=== PATIENT | female | born 1980 | race Caucasian/White ===

== ENCOUNTER 2016-08-06 20:46 | Inpatient (IN) | payer MEDICARE, OTHER ==
--- NOTE | ~2016-08-06 | DS ---
Unit #: [id number] #: [id number] Patient: OLE ALVAREZ [id number] [facility] [address] [place] [address] [id number] MR#: [id number] NAME: OLE ALVAREZ ROOM: [facility] Age: 36 Sex: F Admission Date: 08/06/2016 : 1980 Discharge Date: 08/19/2016 Attending Physician: Sam Avilez M.D. Primary Care Physician: Primary Care Physician No DISCHARGE SUMMARY REASON FOR ADMISSION Depression and paranoia. DIAGNOSTIC STUDIES LABORATORY RESULTS: Unremarkable. HOSPITAL COURSE The patient was admitted to inpatient unit on 08/06/2016 and discharged on 08/19/2016. The patient was treated on the inpatient unit with group therapy, individual therapy, and medication management. The patient responded well with the above modalities of treatment and subsequently, the patient was discharged with a plan to follow up in outpatient clinic such as transition program. DISCHARGE MEDICATIONS Effexor XR 150 mg daily for depression, Cymbalta 60 mg daily for depression, Vistaril 50 mg t.i.d. for anxiety, Ativan 1 mg t.i.d. for anxiety, trazodone 50 mg at bedtime for sleep, and Abilify 10 mg b.i.d. for mood and psychotic symptoms. DISCHARGE DIAGNOSES Psychiatric: 1. Schizoaffective disorder, bipolar type, F25.9. 2. Anxiety disorder, not otherwise specified. Secondary diagnosis: Deferred. Medical diagnosis: Obesity. Stressors: Psychosocial stressors. DISCHARGE INSTRUCTIONS The patient is to follow up in outpatient clinic as per social insurance analyst. CONDITION ON DISCHARGE The patient was pleasant and cooperative. Denied any psychotic symptom or any suicidal ideation. PROGNOSIS Guarded. DIET AND ACTIVITY As tolerated. Unit #: [id number] #: [id number] Patient: OLE ALVAREZ Dictated by... Prabha Burk/lorena TD: 08/19/2016 21:01 JOB #: [id number] DISCHARGE SUMMARY X Sam Avilez MD X DISCHARGE SUMMARY
--- NOTE | ~2016-08-06 | PN ---
Unit #: [id number] #: [id number] Patient: OLE ALVAREZ [id number] [facility] [address] [place] [address] [id number] I MR#: [id number] NAME: OLE ALVAREZ ROOM: [facility] Age: 36 Sex: F Admission Date: 08/06/2016 : 1980 Attending Physician: Sam Avilez M.D. Admitting Physician: Sam Avilez M.D. Primary Care Physician: Primary Care Physician Teresita BAPTISTE PROGRESS NOTES DATE OF SERVICE: 08/10/2016 DISCUSSION The patient interviewed, chart reviewed, obtained information from nursing staff. The patient was compliant and cooperative. Mood is sad, dysphoric, flat affect, guarded, isolative. The patient needed seclusion and holding because of aggressive behavior and needed a p.r.n. REVIEW OF SYSTEMS Complete review of systems is unremarkable. MENTAL STATUS EXAMINATION General appearance; the patient dressed casually. Attention span and concentration, poor. Oriented in place and person. Mood and affect were labile. Speech; slow, concrete. Thought process, circumstantial. Association; guarded, paranoid, isolative, mood lability, bizarre behavior. Recent and remote memory, poor. Insight and judgment, poor. DIAGNOSIS Schizoaffective disorder, bipolar type. ASSESSMENT AND PLAN Advised to continue with current medication and therapeutic protocol. We will monitor response to medication and make further adjustment of medication if needed. Dictated by... Prabha Burk/lorena TD: 08/13/2016 06:12 JOB #: [id number] Unit #: [id number] #: [id number] Patient: OLE ALVAREZ PROGRESS NOTES X Sam Avilez MD PROGRESS NOTE
--- NOTE | ~2016-08-06 | PN ---
Unit #: [id number] #: [id number] Patient: TRUDI KELLER [id number] [facility] [address] [place] [address] [id number] I MR#: [id number] NAME: TRUDI KELLER ROOM: [facility] Age: 36 Sex: F Admission Date: 08/06/2016 : 1980 Attending Physician: Sam Avilez M.D. Admitting Physician: Sam Avilez M.D. Primary Care Physician: Primary Care Physician Teresita BAPTISTE PROGRESS NOTES DATE 08/12/2016 DISCUSSION Ms. Trudi Keller is a 36-year-old female seen on 08/12/2016. The patient interviewed, chart reviewed. Obtained information from nursing staff. The patient's mood continues to be labile, guarded, paranoid. The patient doing better since started on Ativan. According to the staff report yesterday was impulsive. Started hitting windows. Still having problems with mood lability, guarded, paranoid. Complete review of systems unremarkable. MENTAL STATUS EXAMINATION General appearance, the patient dressed casually. Attention span and concentration fair. Oriented to place and person. Mood and affect was labile, guarded, paranoid. Thought process circumstantial. The patient still having above mentioned episode. Recent and remote memory poor. Insight and judgement poor. DIAGNOSES Schizoaffective disorder bipolar type. ASSESSMENT/PLAN Advise to continue with current medication and therapeutic protocol. We will monitor response to medication and make further adjustment of medication. Dictated by... Prabha Burk/nguyen TD: 08/14/2016 20:37 JOB #: [id number] Unit #: [id number] #: [id number] Patient: TRUDI KELLER PROGRESS NOTES X Sam Avilez MD PROGRESS NOTE
--- NOTE | ~2016-08-06 | PN ---
Unit #: [id number] #: [id number] Patient: TRUID KELLER [id number] [facility] [address] [place] [address] [id number] I MR#: [id number] NAME: TRUDI KELLER ROOM: [facility] Age: 36 Sex: F Admission Date: 08/06/2016 : 1980 Attending Physician: Sam Avilez M.D. Admitting Physician: Sam Avilez M.D. Primary Care Physician: Primary Care Physician Teresita HOYT NOTES DATE OF SERVICE: 08/11/2016 DISCUSSION Ms. Trudi Keller is a 36-year-old female, seen on 08/11/2016. The patient had a lot of problem with anger, aggression, mood lability, and severe anxiety. Subsequently, Ativan was added, 1 mg t.i.d. and the patient was given 1 mg as a now dose. The patient continues to be isolative, guarded, still having problem with the anxiety and mood lability. REVIEW OF SYSTEMS Complete review of systems unremarkable. MENTAL STATUS EXAMINATION General appearance, the patient dressed casually. Attention span and concentration, fair. Oriented in place and person. Mood and affect, labile. Speech, monotone. Thought process; concrete, isolative, guarded, flat affect, bizarre behavior. Recent and remote memory, poor. Insight and judgment, poor. ASSESSMENT Bipolar mood disorder, not otherwise specified. Schizoaffective disorder, bipolar type. PLAN Advised to continue with current medication and therapeutic protocol. We will monitor response to medication and make further adjustment of medication. Also, ordered medical consult. The patient's UA was abnormal. Dictated by... Prabha Bukr/lorena TD: 08/13/2016 05:23 JOB #: [id number] Unit #: [id number] #: [id number] Patient: TRUDI KELLER EVELINA NOTES X Sam Avilez MD PROGRESS NOTE
--- NOTE | ~2016-08-06 | PN ---
Unit #: [id number] #: [id number] Patient: TRUDI KELLER [id number] [facility] [address] [place] [address] [id number] I MR#: [id number] NAME: TRUDI KELLER ROOM: [facility] Age: 36 Sex: F Admission Date: 08/06/2016 : 1980 Attending Physician: Sam Avilez M.D. Admitting Physician: Sam Avilez M.D. Primary Care Physician: Primary Care Physician Teresita BAPTISTE PROGRESS NOTES DATE OF SERVICE 08/08/2016 DISCUSSION Mr. Trudi Keller is a 36-year-old female seen on 08/08/2016. The patient interviewed, chart reviewed. Obtained information from nursing staff. The patient continues to be isolative, flat affect, guarded, paranoid. Mood lability. Anxiety. The patient sad, depressed, anxious, but reported medication is helping her. Still tearful, anxious. Complete Review of Systems: Unremarkable. MENTAL STATUS EXAMINATION General Appearance: The patient dressed casually. Attention span, concentration: Poor. Oriented in place and person. Mood and affect labile. Speech: Rapid. Thought process: Circumstantial. The patient is still having passive suicidal ideation, guarded, paranoid, mood lability. Recent and remote memory: Poor. Insight and judgment: Poor. DIAGNOSIS Schizoaffective disorder, bipolar type. ASSESSMENT/PLAN Advised to continue with current medication and therapeutic protocol. We will monitor response to medication and make further adjustment of medication. Dictated by... Prabha Burk/lesly TD: 08/10/2016 14:47 JOB #: [id number] Unit #: [id number] #: [id number] Patient: TRUDI KELLER [place] PROGRESS NOTES X aSm Avilez MD PROGRESS NOTE
--- NOTE | ~2016-08-06 | PN ---
Unit #: [id number] #: [id number] Patient: TRUDI ALVAREZ [id number] [facility] [address] [place] [address] [id number] I MR#: [id number] NAME: TRUDI ALVAREZ ROOM: [facility] Age: 36 Sex: F Admission Date: 08/06/2016 : 1980 Attending Physician: Sam Avilez M.D. Admitting Physician: Sam Avilez M.D. Primary Care Physician: Primary Care Physician Teresita [facility] PROGRESS NOTES DATE OF SERVICE 08/13/2016 DISCUSSION Trudi Alvarez is a 36-year-old female seen on 08/13/2016. The patient interviewed, chart reviewed. Obtained information from nursing staff. The patient was compliant, cooperative. Mood sad, dysphoric, flat affect. The patient was able to participate in programming. The patient reported that making progress. Vital Signs: 98.4, 92, 106/65. The patient did not show any aggressive behavior, but yesterday bizarre behavior, impulsive behavior. The patient reports making progress. The patient was able to tolerate medication fairly well. Complete Review of Systems: Unremarkable. MENTAL STATUS EXAMINATION General Appearance: The patient moderately obese. Dressed casually. Attention span, concentration: Fair. Oriented in place and person. Mood and affect: Sad, dysphoric. Speech: Slow, monotone. Thought process: [place]. Association: The patient denied any thoughts of harming self or others but guarded, paranoid, isolative. Recent and remote memory: Poor. Insight and judgment: Poor. DIAGNOSIS Schizoaffective disorder bipolar type. ASSESSMENT/PLAN Advised to continue with current medication and therapeutic protocol. We will monitor response to medication and make further adjustment of medication. Dictated by... Prabha Burk/lesly TD: 08/15/2016 07:16 JOB #: [id number] Unit #: [id number] #: [id number] Patient: TRUDI ALVAREZ PROGRESS NOTES X Sam Avilez MD PROGRESS NOTE
--- NOTE | ~2016-08-06 | HP ---
Unit #: [id number] #: [id number] Patient: TRUDI ALVAREZ [id number] [place] [address] [id number] I MR#: [id number] NAME: TURDI ALVAREZ ROOM: [facility] Age: 36 Sex: F Admission Date: 08/06/2016 : 1980 Attending Physician: Sam Avilez M.D. Admitting Physician: Sam Avilez M.D. Primary Care Physician: Primary Care Physician No HISTORY AND PHYSICAL HISTORY OF PRESENT ILLNESS Trudi is a 36 year old admitted to [address] [place] [address] with depression and verbalizing wanting to hurt herself. PAST MEDICAL HISTORY Obesity. PAST SURGICAL HISTORY Nothing reported. ALLERGIES No known drug allergies. SOCIAL HISTORY She denies cigarettes, alcohol and illicit drug use. FAMILY HISTORY Medically noncontributory. REVIEW OF SYSTEMS CONSTITUTIONAL: No fever or chills. HEENT: Denies any sore throat, ear pain or runny nose. CARDIOVASCULAR: Denies chest pain, irregular heart rhythm or palpitations. CHEST: Denies shortness of breath or cough. No hemoptysis. GASTROINTESTINAL: Denies nausea, vomiting, diarrhea or chronic constipation. ENDOCRINE: Denies history of increased thirst or urination. No recent significant weight loss or gain. GENITOURINARY: Denies dysuria, frequency, or hematuria. SKIN: Denies any rashes. HEMATOLOGIC: Denies history of increased bleeding or bruising. MUSCULOSKELETAL: Denies any hot, swollen joints. No generalized muscle pain. NEUROLOGIC: Denies problems with vision or speech. No frequent, severe headaches. No numbness, tingling or weakness in any extremities. Denies loss of bladder or bowel control. CURRENT MEDICATIONS 1. Trazodone 75 mg q.h.s. 2. Abilify 10 mg q.h.s. 3. Lorazepam 1 mg t.i.d. 4. Cymbalta 60 mg daily 5. Effexor XR 150 mg daily Unit #: [id number] #: [id number] Patient: TRUDI ALVAREZ 6. Milk of Magnesia p.r.n. 7. Maalox p.r.n. 8. Tylenol p.r.n. 9. Melatonin 5 mg q.h.s. PHYSICAL EXAMINATION GENERAL: Alert, obese, in no apparent distress. VITAL SIGNS: Blood pressure 142/98, heart rate 90, respirations 16, temperature 98.6. WEIGHT: 199 pounds. HEIGHT: 5'2". SKIN: Warm and dry without rash or lesion. HEENT: Normocephalic. TMs not viewed. Oral and nasal passages clear. Conjunctivae clear. Pupils equal, round and reactive to light and accommodation. Extraocular movements intact. NECK: Supple without lymphadenopathy or thyromegaly. HEART: Regular rate and rhythm without murmur. LUNGS: Clear. ABDOMEN: Soft, nontender. : Not done. EXTREMITIES: No evidence of cyanosis, clubbing or edema. Moves all extremities without focal deficit. NEUROLOGICAL: Grossly within normal limits. Cranial Nerves: II: Visual werner are intact. III, IV AND : Extraocular movements are intact. Pupils are equal, round and reactive to light. V: Facial sensation is grossly normal. VII: Facial movements and expression are normal. VIII: Auditory acuity grossly intact. IX, X: Uvula is midline. Phonation is normal. XI: Patient shrugs shoulders and turns head normally. XII: Tongue protrudes in the midline. Sensory and Motor Function: Sensory and motor sensation is grossly normal. Motor: moves all extremities well. Coordination: Gait is normal. Deep Tendon Reflexes: Intact. IMPRESSION Psychiatric admission RECOMMENDATIONS PSYCHIATRIC: Per psychiatrist. MEDICAL: I see no contraindications to participating in facility's activities. MEDICAL PROGNOSIS Good. MEDICAL CONDITION Stable. Dictated by... Abbi Hall P.A.-C. for Prabha Begum/nguyen Unit #: [id number] #: [id number] Patient: TRUDI ALVAREZ TD: 08/07/2016 19:49 JOB #: [id number] HISTORY AND PHYSICAL X Abbi Hall HISTORY AND PHYSICAL
--- NOTE | ~2016-08-06 | PN ---
Unit #: [id number] #: [id number] Patient: TRUDI KELLER [id number] [facility] [address] [place] [address] [id number] I MR#: [id number] NAME: TRUDI KELLER ROOM: [facility] Age: 36 Sex: F Admission Date: 08/06/2016 : 1980 Attending Physician: Sam Avilez M.D. Admitting Physician: Sam Avilez M.D. Primary Care Physician: Primary Care Physician Teresita BAPTISTE PROGRESS NOTES DATE 08/16/2016 DISCUSSION Trudi Keller is a 36-year-old female seen on 08/16/2016. The patient tolerated medication fairly well. Compliant and cooperative. Mood sad, dysphoric, flat. The patient denied any complaint. No aggression. Complete review of systems unremarkable. MENTAL STATUS EXAMINATION General appearance, the patient dressed casually. Attention span and concentration was fair. Oriented to place and person. Mood and affect sad, dysphoric, flat, withdrawn. Answered questions in a monotone voice. Speech monotone. Thought process concrete. The patient denied any thoughts of harming self or others but guarded paranoid. Recent and remote memory poor. Insight and judgement poor. DIAGNOSES Schizoaffective disorder bipolar type. ASSESSMENT/PLAN Advise to continue with current medication and therapeutic protocol. We will monitor response to medication and make further adjustment of medication if needed. Dictated by... Prabha Burk/nguyen TD: 08/20/2016 01:42 JOB #: [id number] Unit #: [id number] #: [id number] Patient: TRUDI KELLER PROGRESS NOTES X Sam Avilez MD PROGRESS NOTE
--- NOTE | ~2016-08-06 | PN ---
Unit #: [id number] #: [id number] Patient: TRUDI ALVAREZ [id number] [facility] [address] [place] [address] [id number] I MR#: [id number] NAME: TRUDI ALVAREZ ROOM: [facility] Age: 36 Sex: F Admission Date: 08/06/2016 : 1980 Attending Physician: Sam Avilez M.D. Admitting Physician: Sam Avilez M.D. Primary Care Physician: Primary Care Physician No [facility] PROGRESS NOTES DATE OF SERVICE 08/15/2016 DISCUSSION Ms. Trudi Alvarez is a 36-year-old female seen on 08/15/2016. The patient interviewed, chart reviewed. Obtained information from nursing staff. The patient was compliant, cooperative. Mood sad, dysphoric, flat affect, but no aggressive behavior. The patient reports making progress. The patient's Abilify was increased to 10 mg twice daily, and the patient seemed more calmer, cooperative. The patient understands if she is able to maintain safe behavior. Plan to consider discharge on Friday. The patient denied any suicidal ideation, feeling better. Complete Review of Systems: Unremarkable. MENTAL STATUS EXAMINATION General Appearance: The patient dressed casually. Able to smile. Made good eye contact. Attention span, concentration: Fair. Oriented in place and person. Mood and affect: Sad, dysphoric, flat affect, but able to smile. Speech: Monotone. Thought process: [place]. Association: The patient denied any thoughts of harming self or others but somewhat guarded, isolative. Recent and remote memory: Poor. Insight and judgment: Poor. DIAGNOSIS Schizoaffective disorder, bipolar type. ASSESSMENT/PLAN Advised to continue with current medication and therapeutic protocol. We will monitor response to medication and make further adjustment of medication. Dictated by... Prabha Burk/lesly TD: 08/17/2016 08:29 JOB #: [id number] Unit #: [id number] #: [id number] Patient: TRUDI ALVAREZ PROGRESS NOTES X Sam Avilez MD PROGRESS NOTE
--- NOTE | ~2016-08-06 | PN ---
Unit #: [id number] #: [id number] Patient: TRUDI KELLER [id number] [facility] [address] [place] [address] [id number] I MR#: [id number] NAME: TRUDI KELLER ROOM: [facility] Age: 36 Sex: F Admission Date: 08/06/2016 : 1980 Attending Physician: Sam Avilez M.D. Admitting Physician: Sam Avilez M.D. Primary Care Physician: Primary Care Physician Teresita HOYT NOTES DATE 08/14/2016 DISCUSSION Trudi Keller is a 36-year-old female seen on 08/14/2016. The patient interviewed, chart reviewed. Obtained information from nursing staff. The patient was compliant and cooperative. Mood sad, dysphoric. Flat affect, guarded. The patient was somewhat tearful but able to maintain safe behavior. There is an agreed order for the treatment. According to staff the patient was guarded, isolative withdrawn. No side effects from medication. Complete review of systems unremarkable. MENTAL STATUS EXAMINATION General appearance, the patient dressed casually. Attention span and concentration fair. Oriented to place and person. Mood and affect was sad, dysphoric withdrawn. Speech monotone. Thought process concrete. The patient denied any thoughts of harming self or others but guarded. Recent and remote memory poor. Insight and judgement poor. DIAGNOSES Schizoaffective disorder bipolar type. ASSESSMENT/PLAN Advise to continue with trazodone, lorazepam, Vistaril, Abilify, Cymbalta combination with a plan to increase dosage to 10 mg twice daily. If needed consider further adjustment of medication. Dictated by... Prabha Burk/nguyen TD: 08/15/2016 23:04 JOB #: [id number] Unit #: [id number] #: [id number] Patient: TRUDI KELLER EVELINA NOTES X Sam Avilez MD PROGRESS NOTE
--- NOTE | ~2016-08-06 | PN ---
Unit #: [id number] #: [id number] Patient: TRUDI ALVAREZ [id number] [facility] [address] [place] [address] [id number] I MR#: [id number] NAME: TRUDI ALVAREZ ROOM: [facility] Age: 36 Sex: F Admission Date: 08/06/2016 : 1980 Attending Physician: Sam Avilez M.D. Admitting Physician: Sam Avilez M.D. Primary Care Physician: Primary Care Physician Teresita BAPTISTE PROGRESS NOTES DATE 08/17/2016 DISCUSSION Ms. Trudi Meng is a 36-year-old female, seen on 08/17/2016. The patient interviewed, chart reviewed, and obtained information from the nursing staff. The patient was compliant and cooperative. Affect brighter. Mood good. The patient is able to maintain safe behavior. REVIEW OF SYSTEMS Complete review of systems unremarkable. MENTAL STATUS EXAMINATION General appearance: Patient casually dressed. Attention span and concentration, fair. Oriented to time, place, and person. Mood and affect, brighter. Speech, regular rate, more spontaneous. Thought process, coherent. Association, the patient denied any thoughts of harming self or others but guarded, decrease in paranoia. Recent and remote memory, poor. Insight and judgment, poor. DIAGNOSIS Schizoaffective disorder, bipolar type. ASSESSMENT/PLAN Advised to continue with the current medication and therapeutic protocol and will monitor response to medication, and make further adjustment of medication if needed. Dictated by... Prabha Burk/allen TD: 08/20/2016 08:01 JOB #: [id number] Unit #: [id number] #: [id number] Patient: TRUDI ALVAREZ PROGRESS NOTES X Sam Avilez MD PROGRESS NOTE
--- NOTE | ~2016-08-06 | CO ---
Unit #: [id number] #: [id number] Patient: OLE ALVAREZ [id number] [place] [address] [id number] I MR#: [id number] NAME: OLE ALVAREZ ROOM: [facility] Age: 36 Sex: F Admission Date: 08/06/2016 : 1980 Attending Physician: Sam Avilez M.D. Consultation Date: 08/07/2016 CONSULTATION REPORT MAZIN Brush is a 36-year-old admitted with depression and verbalizing wanting to hurt herself. At the time of admission, she gave no history of high blood pressure. Pressures have been controlled since admission; 118/76, 110/66, 130/78 with heart rates running 87, 82, 92. PLAN Continue to monitor blood pressures. The patient can follow up with primary care physician should she have any concerns about her blood pressure. Dictated by... Abbi Hall P.A.-C. for Prabha Begum/lorena TD: 08/10/2016 14:02 JOB #: [id number] CONSULTATION REPORT X Abbi Hall CONSULTATION REPORT
--- NOTE | ~2016-08-06 | PN ---
Unit #: [id number] #: [id number] Patient: TRUDI KELLER [id number] [facility] [address] [place] [address] [id number] I MR#: [id number] NAME: RTUDI KELLER ROOM: [facility] Age: 36 Sex: F Admission Date: 08/06/2016 : 1980 Attending Physician: Sam Avilez M.D. Admitting Physician: Sam Avilze M.D. Primary Care Physician: Primary Care Physician Teresita HOYT NOTES DATE 08/09/2016 DISCUSSION Trudi Keller is a 36-year-old female seen on 08/09/2016. Patient interviewed, chart reviewed, obtained information from nursing staff. Patient's mood labile, sad, dysphoric, anxious, nervous, guarded. Patient tolerating medication fairly well. Patient still having problems with anxiety, mood lability, paranoia, guarded. Vital signs stable 98.0, 87, 16, 131/87. Patient's thoughts circumstantial, paranoid, recent thoughts oppositional, guarded. Complete review of systems unremarkable. MENTAL STATUS EXAMINATION General appearance: Patient dressed casually. Attention span and concentration fair. Oriented in place and person. Mood and affect sad/dysphoric. Speech monotone. Thought processes concrete. Patient denied any thoughts of harming self or others or any psychotic symptoms. Recent and remote memory poor. Insight and judgment poor. DIAGNOSIS Schizoaffective disorder, bipolar type ASSESSMENT/PLAN Advised to continue with the current medication and therapy protocol. We will monitor response to medication and make further adjustment of medication. Dictated by... Prabha Burk/jose cruz TD: 08/11/2016 10:43 JOB #: [id number] Unit #: [id number] #: [id number] Patient: TRUDI KELLER PROGRESS NOTES X Sam Avilez MD PROGRESS NOTE
--- NOTE | ~2016-08-06 | PN ---
Unit #: [id number] #: [id number] Patient: TRUDI KELLER [id number] [facility] [address] [place] [address] [id number] I MR#: [id number] NAME: TRUDI KELLER ROOM: [facility] Age: 36 Sex: F Admission Date: 08/06/2016 : 1980 Attending Physician: Sam Avilez M.D. Admitting Physician: Sam Avilez M.D. Primary Care Physician: Primary Care Physician Teresita BAPTISTE PROGRESS NOTES DATE OF SERVICE: 08/18/2016 DISCUSSION Trudi Keller is a 36-year-old female, seen on 08/18/2016. The patient interviewed, chart reviewed, and obtained information from nursing staff. The patient was compliant and cooperative. Mood was sad, dysphoric, flat affect, but reports making progress. The patient overall is showing much improvement. No side effects from medication. Complete review of systems unremarkable. MENTAL STATUS EXAMINATION General appearance; the patient is moderately obese, dressed casually. Attention span and concentration, fair. Oriented in time, place, and person. Mood and affect were brighter, able to smile. Speech, regular rate. Thought process, goal directed. The patient denied any thoughts of harming self or others, but still somewhat guarded. Recent and remote memory, poor. Insight and judgment, poor. DIAGNOSIS Schizoaffective disorder, bipolar type. ASSESSMENT AND PLAN Advised to continue with current medication and therapeutic protocol. If the patient continues to do well, consider discharge next week in the followup in outpatient program. Dictated by... Prabha Burk/lorena TD: 08/19/2016 19:31 JOB #: [id number] Unit #: [id number] #: [id number] Patient: TRUDI KELLER PROGRESS NOTES X Sam Avilez MD PROGRESS NOTE
--- NOTE | ~2016-08-06 | PN ---
Unit #: [id number] #: [id number] Patient: TRUDI KELLER [id number] [facility] [address] [place] [address] [id number] MR#: [id number] NAME: TRUDI KELLER ROOM: [facility] Age: 36 Sex: F Admission Date: 08/06/2016 : 1980 Attending Physician: Sam Avilez M.D. Admitting Physician: Sam Avilez M.D. Primary Care Physician: Primary Care Physician Teresita BAPTISTE PROGRESS NOTES DATE 08/07/2016 DISCUSSION Ms. Trudi Keller is a 36-year-old female seen on 08/07/2016. The patient was tearful, anxious, nervous, sad, depressed, withdrawn, tearful, poor insight, poor judgement. Complete review of systems unremarkable. MENTAL STATUS EXAMINATION General appearance, the patient dressed casually. Attention span and concentration fair. Oriented to place and person. Mood and affect labile. Speech rapid. Thought process circumstantial guarded, paranoid, agitated, hostile, aggressive. Recent and remote memory poor. Insight and judgement poor. DIAGNOSES 1. Schizoaffective disorder bipolar type. 2. Mood disorder NOS. ASSESSMENT/PLAN Recommending at this time the patient was given Haldol 10, Cogentin 1 and Ativan 1 mg injection a.m. which was affective. Continue with current medication. If needed consider further adjustment of medication and if needed consider long acting injectable medication. Dictated by... Prabha Burk/nguyen TD: 08/08/2016 23:58 JOB #: [id number] Unit #: [id number] #: [id number] Patient: TRUDI KELLER PROGRESS NOTES X Sam Avilez MD X PROGRESS NOTE
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
[2016-08-07 09:48] LABS: THYROID STIMULATING HORMONE 3.08 uIU/ml (0.34-5.60)
[2016-08-07 09:58] LABS: FREE THYROXIN (T4) 0.77 ng/dL (0.58-1.64)
[2016-08-11 13:04] LABS: URINE APPEARANCE TURBID; URINE BILIRUBIN NEG (NEG); URINE BLOOD TRACE (NEG); URINE COLOR YELLOW; URINE GLUCOSE NEG (NEG); URINE KETONE NEG (NEG); URINE LEUKOCYTE ESTERASE 1+ (NEG); URINE NITRATE NEG (NEG); URINE PROTEIN NEG (NEG); URINE SPECIFIC GRAVITY 1.027 (1.003-1.035); URINE UROBILINOGEN 0.2 MG/DL (NEG)
[2016-08-11 13:08] LABS: URINE BACTERIA AUWI 4+ (NEGATIVE); URINE SQUAMOUS EPITHELIAL CELL MANY /[HPF]; UWBCS1 AUWI 50-100 (0-5)
[2016-08-11 13:09] LABS: U HYALINE CASTS AUWI 0-2 /[LPF]
== END 2016-08-19 12:00 | disposition home or self-care (01) | DRG 885 ==
LOC: P2L 20:46
PROVIDERS: Psychiatry & Neurology Psychiatry
DX: F33.2 Major depressive disorder, recurrent severe without psychotic features (principal); F25.9 Schizoaffective disorder, unspecified; I10 Essential (primary) hypertension; N39.0 Urinary tract infection, site not specified; F41.9 Anxiety disorder, unspecified; E66.9 Obesity, unspecified; F39 Unspecified mood [affective] disorder
CPT/HCPCS: 36415; 80048; 80076; 80307; 81003; 84439; 84443; 84703; 85025; 96361; 96374; 99285; G0480; J0515; J1630; J2060

== ENCOUNTER 2016-08-27 13:47 | Inpatient (IN) | payer MEDICARE, OTHER ==
--- NOTE | ~2016-08-27 | PN ---
Unit #: [id number] #: [id number] Patient: TRUDI KELLER [id number] [facility] [address] [place] [address] [id number] I MR#: [id number] NAME: TRUDI KELLER ROOM: [facility] Age: 36 Sex: F Admission Date: 08/27/2016 : 1980 Attending Physician: Sam Avilez M.D. Admitting Physician: Sam Avilez M.D. Primary Care Physician: Primary Care Physician Teresita HOYT NOTES DATE OF SERVICE: 09/01/2016 DISCUSSION Trudi Keller is a 36-year-old female, seen on 09/01/2016. The patient interviewed, chart reviewed, and obtained information from nursing staff. The patient was compliant and cooperative. Vital signs; temperature 97.8, pulse 91, and blood pressure 112/66. The patient was isolative, guarded, flat affect, sad, dysphoric, but still having periods of time when she just wants to leave. The patient understands that she will be leaving next week as soon as find placement. Complete review of systems unremarkable. MENTAL STATUS EXAMINATION General appearance, the patient dressed casually. Attention span and concentration, poor. Oriented in place and person. Mood and affect; sad, depressed, poor eye contact. Speech; slow, long pauses. Thought process; concrete, guarded, paranoid, but denied any thoughts of harming self or others. Recent and remote memory, poor. Insight and judgment, poor. DIAGNOSIS Schizoaffective disorder, bipolar type. ASSESSMENT AND PLAN Advised to continue with current medication and therapeutic protocol. We will monitor response to medication and make further adjustment of medication. Dictated by... Prabha Burk/lorena TD: 09/02/2016 13:39 JOB #: [id number] Unit #: [id number] #: [id number] Patient: TRUDI KELLER PROGRESS NOTES Page 1 of 1 X Sam Avilez MD PROGRESS NOTE
--- NOTE | ~2016-08-27 | CO ---
Unit #: [id number] #: [id number] Patient: TRUDI ALVAREZ [id number] [place] [address] [id number] MR#: [id number] NAME: TRUDI ALVAREZ ROOM: [facility] Age: 36 Sex: F Admission Date: 08/27/2016 : 1980 Attending Physician: Sam Avilez M.D. Primary Care Physician: Primary Care Physician No Consultation Date: 08/28/2016 CONSULTATION REPORT SUBJECTIVE Trudi is a 36-year-old who complained of "upper respiratory infection symptoms." She describes a cough productive of clear sputum. She has had no increased temperatures or complaints of shortness of breath. She has also had a bit of clear nasal drainage. We have been asked to assess and treat. Nursing staff reports no increased temperatures. OBJECTIVE GENERAL: Alert, well nourished, in no apparent distress. VITAL SIGNS: Blood pressure 150/80, heart rate 80, respirations 16, temperature 98.6, weight 198, and height 5 feet 2 inches. HEENT: Normocephalic. TMs shiny bilaterally. Oral and nasal passages clear. Conjunctivae clear. NECK: Supple without lymphadenopathy. CHEST: Lungs clear. ASSESSMENT Upper respiratory infection, most likely viral. PLAN Claritin 10 mg one p.o. daily. Dictated by... Abbi Hall PEleonoraAEleonora-Ibrahima. for Prabha Begum/lorena TD: 08/30/2016 02:46 JOB #: [id number] CONSULTATION REPORT X Abbi Hall X CONSULTATION REPORT
--- NOTE | ~2016-08-27 | PN ---
Unit #: [id number] #: [id number] Patient: TRUDI KELLER [id number] [facility] [address] [place] [address] [id number] I MR#: [id number] NAME: TRUDI KELLER ROOM: [facility] Age: 36 Sex: F Admission Date: 08/27/2016 : 1980 Attending Physician: Sam Avilez M.D. Admitting Physician: Sam Avilez M.D. Primary Care Physician: Primary Care Physician Teresita BAPTISTE PROGRESS NOTES DATE 08/29/2016 DISCUSSION Ms. Trudi Keller is a 36-year-old female seen on 08/29/2016. Patient continues to look sad, depressed, withdrawn. Patient reported feeling sad, depressed, anxious. Patient withdrawn, isolative, guarded, flat affect. Complete review of system unremarkable. MENTAL STATUS EXAMINATION General appearance, patient dressed casually. Attention span, concentration fair. Oriented in place and person. Mood and affect sad, depressed. Speech monotone. Thought process, concrete. Patient reported having suicidal ideation. Denied any homicidal ideation, guarded, paranoid. Recent and remote memory poor. Insight and judgement poor. DIAGNOSIS Schizoaffective disorder, bipolar type. ASSESSMENT/PLAN Advised to increase Effexor to 225 mg daily. Continue with the inpatient programming. If needed, consider further adjustment of medication. Dictated by... Prabha Burk/aleksey TD: 08/30/2016 19:54 JOB #: [id number] Unit #: [id number] #: [id number] Patient: TRUDI KELLER PROGRESS NOTES X Sam Avilez MD PROGRESS NOTE
--- NOTE | ~2016-08-27 | HP ---
Unit #: [id number] #: [id number] Patient: TRUDI ALVAREZ [id number] [facility] [address] [place] [address] [id number] I MR#: [id number] NAME: TRUDI ALVAREZ ROOM: [facility] Age: 36 Sex: F Admission Date: 08/27/2016 : 1980 Attending Physician: Sam Avilez M.D. Admitting Physician: Sam Avilez M.D. Primary Care Physician: Primary Care Physician No HISTORY AND PHYSICAL HISTORY OF PRESENT ILLNESS Trudi is a 36 year old admitted to [address] [place] [address] with depression and verbalizing wanting to hurt herself. She was recently discharged from this facility after treatment for the same. The patient was seen, and H and P dated 08/07/2016 was reviewed. This is current. No changes. Please see H and P dated 08/07/2016. Dictated by... Abbi Hall P.A.-C. for Prabha Begum/lesly TD: 08/28/2016 12:00 JOB #: [id number] HISTORY AND PHYSICAL X Abbi Hall HISTORY AND PHYSICAL
--- NOTE | ~2016-08-27 | PN ---
Unit #: [id number] #: [id number] Patient: TRUDI KELLER [id number] [facility] [address] [place] [address] [id number] MR#: [id number] NAME: TRUDI KELLER ROOM: [facility] Age: 36 Sex: F Admission Date: 08/27/2016 : 1980 Attending Physician: Sam Avilez M.D. Admitting Physician: Sam Avilez M.D. Primary Care Physician: Primary Care Physician Teresita BAPTISTE PROGRESS NOTES DATE 08/31/2016 DISCUSSION Trudi Keller is a 36-year-old female seen on 08/31/2016. The patient interviewed, chart reviewed. Obtained information from nursing staff. The patient guarded, paranoid, isolative, flat affect. The patient was cooperative, redirectable but still having paranoia, mood lability, having periods of agitation, mood lability, requiring p.r.n. Ativan. Complete review of systems unremarkable. MENTAL STATUS EXAMINATION General appearance, the patient dressed casually. Attention span and concentration is poor. Oriented to place and person. Mood and affect labile. Speech slow. Thought process circumstantial. The patient denied any thoughts of harming self or others but guarded, paranoid, mood lability. Recent and remote memory poor. Insight and judgement poor. DIAGNOSES Schizoaffective disorder bipolar type. ASSESSMENT/PLAN Advise to continue with current medication and therapeutic protocol. We will monitor response to medication and make further adjustment of medication. Dictated by... Prabha Burk/nguyen TD: 09/02/2016 03:04 JOB #: [id number] Unit #: [id number] #: [id number] Patient: TRUDI KELLER PROGRESS NOTES X Sam Avilez MD PROGRESS NOTE
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
--- NOTE | ~2016-08-27 | CO ---
Unit #: [id number] #: [id number] Patient: OLE ALVAREZ [id number] [place] [address] [id number] I MR#: [id number] NAME: OLE ALVAREZ ROOM: [facility] Age: 36 Sex: F Admission Date: 08/27/2016 : 1980 Attending Physician: Sam Avilez M.D. Primary Care Physician: Primary Care Physician No Consultation Date: 08/30/2016 CONSULTATION REPORT SUBJECTIVE The patient is a 36 year old with an abnormal urinalysis on admission. We have been asked to assess and treat. She does complain of urgency and frequency. There have been no recorded increased temperatures. OBJECTIVE GENERAL: Alert, well nourished. No apparent distress. VITAL SIGNS: Blood pressure 120/70, heart rate 80, respirations 16, and temperature 98.6. ABDOMEN: Soft, nontender. BACK: Negative CVA tenderness. DIAGNOSTIC STUDIES LABORATORY DATA: Admission urinalysis 1+ bacteria, 5 to 10 wbc's. ASSESSMENT Urinary tract infection. PLAN Bactrim DS 1 p.o. b.i.d. x3 days. Dictated by... Abbi Hall, P.A.-C. for Prabha Begum/lesly TD: 09/04/2016 14:55 JOB #: [id number] CONSULTATION REPORT Page 1 of 1 X Abbi Hall CONSULTATION REPORT
--- NOTE | ~2016-08-27 | DS ---
Unit #: [id number] #: [id number] Patient: OLE ALVAREZ [id number] [facility] [address] [place] [address] [id number] I MR#: [id number] NAME: OLE ALVAREZ ROOM: [facility] Age: 36 Sex: F Admission Date: 08/27/2016 : 1980 Discharge Date: 09/04/2016 Attending Physician: Sam Avilez M.D. Primary Care Physician: Primary Care Physician No DISCHARGE SUMMARY REASON FOR ADMISSION Depression and psychosis. DIAGNOSTIC STUDIES LABORATORY RESULTS: Remarkable for glucose 133. HOSPITAL COURSE The patient was admitted to inpatient unit on 08/27/2016 and discharged on 09/04/2016. The patient was treated on the inpatient unit with group therapy, individual therapy, medication management, psychotherapy, psychoeducation. The patient responded well with the above modalities of treatment and following medication. Subsequently, the patient was discharged with a plan to follow up in outpatient clinic. DISCHARGE MEDICATIONS Effexor 225 mg daily for mood symptom, Cymbalta 60 mg daily for mood symptom, Vistaril 50 mg t.i.d. for anxiety, Desyrel 50 mg at bedtime for sleep, Abilify 10 mg b.i.d. for psychosis, melatonin 5 mg at bedtime for sleep, Claritin 10 mg daily for allergies. DISCHARGE DIAGNOSES Psychiatric: 1. Schizoaffective disorder, bipolar type, F25.9. 2. Anxiety disorder, not otherwise specified. Secondary diagnosis: Deferred. Medical diagnosis: Obesity. Stressors: Psychosocial stressors. DISCHARGE INSTRUCTIONS The patient to follow up in outpatient clinic as per social media content specialist. CONDITION ON DISCHARGE The patient was pleasant and cooperative. Denied any thoughts of harming self or others or any psychotic symptom. Recent and remote memory, poor. Insight and judgment, poor. DIET AND ACTIVITY As tolerated. Dictated by... Unit #: [id number] #: [id number] Patient: OLE ALVAREZ Prabha Burk/lorena TD: 09/04/2016 23:22 JOB #: [id number] DISCHARGE SUMMARY Page 1 of 1 X Sam Avilez MD DISCHARGE SUMMARY
--- NOTE | ~2016-08-27 | PN ---
Unit #: [id number] #: [id number] Patient: TRUDI KELLER [id number] [facility] [address] [place] [address] [id number] MR#: [id number] NAME: TRUDI KELLER ROOM: [facility] Age: 36 Sex: F Admission Date: 08/27/2016 : 1980 Attending Physician: Sam Avilez M.D. Admitting Physician: Sam Avilez M.D. Primary Care Physician: Primary Care Physician Teresita HOYT NOTES DATE OF SERVICE: 09/03/2016 DISCUSSION Trudi Keller is a 36-year-old female, seen on 09/03/2016. The patient interviewed, chart reviewed, and obtained information from nursing staff. The patient was compliant and cooperative. Mood was sad and dysphoric. The patient was isolative, guarded. Vital signs; temperature 98.3, pulse 80, respirations 14, and blood pressure 100/62. The patient continues to be focused on going home. The patient was explained that she will be going to the placement as unable to go home due to her threats. The patient was isolative in her room, flat affect, minimal interaction with staff and peer, compliant with medication. Complete review of systems unremarkable. MENTAL STATUS EXAMINATION General appearance; the patient dressed casually, moderately obese. Attention span and concentration, poor. Oriented in place and person. Mood and affect, labile. Speech, monotone. Thought process, concrete. The patient denied any thoughts of harming self or others, but guarded, paranoid, isolative. Recent and remote memory, poor. Insight and judgment, poor. DIAGNOSIS Schizoaffective disorder, bipolar type. ASSESSMENT AND PLAN Advised to continue with current medication and therapeutic protocol. We will monitor response to medication and make further adjustment of medication. Dictated by... Prabha Burk/lorena TD: 09/03/2016 18:00 JOB #: [id number] Unit #: [id number] #: [id number] Patient: TRUDI KELLER PROGRESS NOTES Page 1 of 1 X Sam Avilez MD PROGRESS NOTE
--- NOTE | ~2016-08-27 | TN ---
Unit #: [id number] #: [id number] Patient: OLE ALVAREZ [id number] [facility] [address] [place] [address] [id number] MR#: [id number] NAME: OLE ALVAREZ ROOM: [facility] Age: 36 Sex: F Admission Date: 08/27/2016 : 1980 Discharge Date: Attending Physician: Sam Avilez M.D. Primary Care Physician: Primary Care Physician No LOC TRANSFER NOTE DATE OF SERVICE: 08/27/2016 The patient was transferred from [facility] to inpatient level of care on 08/27/2016. ORIGINAL REASON FOR ADMISSION TO THE HOSPITAL Depression. DISCHARGE MEDICATIONS Name, dosage, indication for use: Cymbalta 60 mg daily for depression; Effexor XR 150 mg daily for depression; melatonin 5 mg at bedtime for sleep; Desyrel 50 mg at bedtime for sleep; Abilify 10 mg b.i.d. for psychosis; the patient is on injection Abilify Maintena shot 400 mg deep intramuscularly monthly, next injection due on 09/06/2016; lorazepam 1 mg t.i.d. for anxiety; and Vistaril 50 mg t.i.d. for anxiety. RESPONSE TO TREATMENT Thus far, poor. CURRENT SYMPTOMATOLOGY AND CLINICAL JUSTIFICATION FOR TRANSFER The patient is currently having suicidal ideation with recent suicide attempt, needing inpatient admission. REVIEW OF SYSTEMS Complete review of systems unremarkable. MENTAL STATUS EXAMINATION General appearance; the patient is moderately obese, dressed casually. Attention span and concentration, fair. Oriented in time, place, and person. Mood and affect, sad and depressed. Speech, monotone. Thought process, concrete. Association, the patient reported having suicidal ideation, guarded, paranoid. Recent and remote memory, poor. Insight and judgment, poor. DIAGNOSES Psychiatric: 1. Schizoaffective disorder, bipolar type. 2. Anxiety disorder, not otherwise specified. Secondary diagnosis: Deferred. Medical diagnosis: Obesity. Stressors: Psychosocial stressors. Unit #: [id number] #: [id number] Patient: OLE ALVAREZ RECOMMENDATION AND EXPECTATION 1. Advised to admit the patient on the inpatient unit. 2. Provide safe, supportive, and structured environment. 3. UA and UDS. 4. Advised to continue with the above medications. The patient is to be monitored for self-harm and SC1 precaution. The patient is to attend all the programing on the inpatient unit. Treatment goal is to attain euthymic mood, gain insight into her problem, and learn coping skills. DISCHARGE PLAN Plan is to stabilize the patient and consider followup in outpatient program once the patient is stable. ESTIMATED LENGTH OF STAY 7 to 10 days. Dictated by... Prabha Burk/lorena TD: 08/27/2016 15:40 JOB #: [id number] LOC TRANSFER NOTE X Sam Avilez MD X LOC TRANSFER NOTE
--- NOTE | ~2016-08-27 | PN ---
Unit #: [id number] #: [id number] Patient: TRUDI KELLER [id number] [facility] [address] [place] [address] [id number] I MR#: [id number] NAME: TRUDI KELLER ROOM: [facility] Age: 36 Sex: F Admission Date: 08/27/2016 : 1980 Attending Physician: Sam Avilez M.D. Admitting Physician: Sam Avilez M.D. Primary Care Physician: Primary Care Physician Teresita BAPTISTE PROGRESS NOTES DATE 09/02/2016 DISCUSSION Ms. Trudi Keller is a 36-year-old female seen on 09/02/2016. The patient interviewed, chart reviewed. Obtained information from nursing staff. The patient's mood was labile, anxious, nervous about going home. The patient needed a p.r.n. medication as the patient was constantly running to the door. Vital signs 98.0, 84, 16, 105/64. Guarded, paranoid, mood lability, anxiety. The patient's behavior was aggressive, cussing, disruptive, disrespectful, noncompliant, property damage. Complete review of systems unremarkable. MENTAL STATUS EXAMINATION General appearance, the patient casually dressed. Attention span and concentration poor. Oriented to place and person. Mood and affect was labile. Speech monotone. Thought process concrete. The patient denied any thoughts of harming self or others but guarded. Recent and remote memory poor. Insight and judgement poor. Behavior as mentioned above. DIAGNOSES Schizoaffective disorder bipolar type ASSESSMENT/PLAN Advise to continue with current medication and therapeutic protocol. We will monitor response to medication and make further adjustment of medication. Dictated by... Prabha Burk/nguyen TD: 09/04/2016 00:40 JOB #: [id number] Unit #: [id number] #: [id number] Patient: TRUDI KELLER PROGRESS NOTES Page 1 of 1 X Sam Avilez MD PROGRESS NOTE
[2016-08-29 13:29] LABS: URINE APPEARANCE TURBID; URINE BILIRUBIN NEG (NEG); URINE BLOOD 3+ (NEG); URINE COLOR DK YELLOW; URINE GLUCOSE NEG (NEG); URINE KETONE NEG (NEG); URINE LEUKOCYTE ESTERASE 1+ (NEG); URINE NITRATE NEG (NEG); URINE PH 5.5 (5-8); URINE PROTEIN 2+ (NEG); URINE SPECIFIC GRAVITY 1.034 (1.003-1.035)
[2016-08-29 13:31] LABS: URINE BACTERIA AUWI 1+ (NEGATIVE); URINE SQUAMOUS EPITHELIAL CELL FEW /[HPF]
[2016-08-29 14:01] LABS: URBCS1 AUWI 50-100 /[HPF] (0-2); URINE AMORPHOUS SEDIMENT AMORP URATES
[2016-08-29 14:16] LABS: AMPHETAMINE NEG (NEG); BARBITURATES NEG (NEG); BENZODIAZEPINES POS (NEG); COCAINE NEG (NEG); MARIJUANA NEG (NEG); OPIATES NEG (NEG); TRICYCLIC ANTIDEPRESSANTS POS (NEG); U METHADONE NEG (NEG)
== END 2016-09-04 13:38 | disposition home or self-care (01) | DRG 885 ==
LOC: P2L 13:47
PROVIDERS: Psychiatry & Neurology Psychiatry
DX: F25.0 Schizoaffective disorder, bipolar type (principal); N39.0 Urinary tract infection, site not specified; F41.9 Anxiety disorder, unspecified; E66.9 Obesity, unspecified; J06.9 Acute upper respiratory infection, unspecified
CPT/HCPCS: 80307; 81003; 90853; J0515; J1630; J2060

== ENCOUNTER 2016-09-18 22:05 | Inpatient (IN) | payer MEDICARE, OTHER ==
--- NOTE | ~2016-09-18 | PN ---
Unit #: [id number] #: [id number] Patient: TRUDI KELLER [id number] [facility] [address] [place] [address] [id number] I MR#: [id number] NAME: TRUDI KELLER ROOM: [facility] Age: 36 Sex: F Admission Date: 09/18/2016 : 1980 Attending Physician: Sam Avilez M.D. Admitting Physician: Sam Avilez M.D. Primary Care Physician: Primary Care Physician Teresita HOYT NOTES DATE OF SERVICE 09/22/2016 DISCUSSION Ms. Trudi Keller is a 36-year-old female seen on 09/22/2016. The patient interviewed, chart reviewed. Obtained information from nursing staff. The patient continues to be seclusive, isolative, guarded, flat affect, withdrawn, isolative. Vital Signs: Stable, 97.7, 68, 16, 141/84. The patient was able to maintain safe behavior. No aggressive behavior. The patient was attentive, cooperative. Mood sad, dysphoric, flat. Complete Review of Systems: Unremarkable. MENTAL STATUS EXAMINATION General Appearance: The patient dressed in hospital attire. Attention span, concentration: Poor. Oriented in place and person. Mood and affect labile. Speech: Monotone. Thought process: [place]. The patient denied any thoughts of harming self or others but guarded, paranoid. Mood lability. Isolative, guarded. Recent and remote memory: Poor. Insight and judgment: Poor. DIAGNOSIS Schizoaffective disorder bipolar type. ASSESSMENT/PLAN Advised to continue with current medication and therapeutic protocol. We will monitor response to medication and make further adjustment of medication. Dictated by... Prabha Burk/lesly TD: 09/24/2016 08:24 JOB #: [id number] Unit #: [id number] #: [id number] Patient: TRUDI KELLER PROGRESS NOTES Page 1 of 1 X Sam Avilez MD PROGRESS NOTE
--- NOTE | ~2016-09-18 | PN ---
Unit #: [id number] #: [id number] Patient: TRUDI KELLER [id number] [facility] [address] [place] [address] [id number] MR#: [id number] NAME: TRUDI KELLER ROOM: [facility] Age: 36 Sex: F Admission Date: 09/18/2016 : 1980 Attending Physician: Sam Avilez M.D. Admitting Physician: Sam Avilez M.D. Primary Care Physician: Primary Care Physician Teresita HOYT NOTES DATE 09/20/2016 DISCUSSION Ms. Trudi Keller is a 36-year-old female, seen on 09/20/2016. The patient interviewed, chart reviewed, and obtained information from the nursing staff. The patient reports that Haldol is working. The patient is compliant with medication, received Abilify injection today of Abilify Maintena 400 mg deep intramuscularly. The patient was able to participate in all the programming but mood sad and dysphoric, flat affect, guarded. REVIEW OF SYSTEMS Complete review of systems unremarkable. MENTAL STATUS EXAMINATION General appearance: Patient dressed casually in hospital attire. Attention span and concentration, poor. Oriented to place and person. Mood and affect, flat, sad, and dysphoric. Speech, monotone. Thought process, concrete. The patient denied any thoughts of harming self or others but guarded. Recent and remote memory, poor. Insight and judgment, poor. DIAGNOSES 1. Bipolar mood disorder, NOS. 2. Schizoaffective disorder, bipolar type. ASSESSMENT/PLAN Advised to continue with the current medication and therapeutic protocol and will monitor response to medication, and make further adjustment of medication. Dictated by... Prabha Burk/allen TD: 09/23/2016 07:07 JOB #: [id number] Unit #: [id number] #: [id number] Patient: TRUDI KELLER PROGRESS NOTES Page 1 of 1 X Sam Avilez MD PROGRESS NOTE
--- NOTE | ~2016-09-18 | HP ---
Unit #: [id number] #: [id number] Patient: TRUDI ALVAREZ [id number] [place] [address] [id number] MR#: [id number] NAME: TRUDI ALVAREZ ROOM: [facility] Age: 36 Sex: F Admission Date: 09/18/2016 : 1980 Attending Physician: Sam Avilez M.D. Admitting Physician: Sam Avilez M.D. Primary Care Physician: Primary Care Physician No HISTORY AND PHYSICAL HISTORY OF PRESENT ILLNESS Trudi is a 36 year old admitted to [address] [place] [address] with depression verbalizing wanting to hurt herself. PAST MEDICAL HISTORY Obesity. PAST SURGICAL HISTORY Nothing reported. ALLERGIES No known drug allergies. SOCIAL HISTORY She denies cigarettes, alcohol and illicit drug use. FAMILY HISTORY Medically noncontributory. REVIEW OF SYSTEMS She does not answer questions appropriately. There were no reports of nausea, vomiting or diarrhea. She has had no cough or increased temperature. CURRENT MEDICATIONS 1. Effexor XR 150 mg daily. 2. Cogentin 1 mg b.i.d. 3. Haldol 5 mg b.i.d. 4. Claritin 10 mg daily. 5. Cymbalta 60 mg daily. 6. Desyrel 50 mg q.h.s. 7. Vistaril 50 mg t.i.d. 8. Melatonin 5 mg q.h.s. 9. Milk of Magnesia p.r.n. 10. Maalox p.r.n. 11. Tylenol p.r.n. PHYSICAL EXAMINATION GENERAL: Alert, well-nourished, in no apparent distress. VITAL SIGNS: Blood pressure 140/54, heart rate 86, respirations 16, temperature 98.6. WEIGHT: 200. HEIGHT: 5 feet 2 inches. Unit #: [id number] #: [id number] Patient: TRUDI ALVAREZ SKIN: Warm and dry without rash or lesion. HEENT: Normocephalic. TMs not viewed. Oral and nasal passages clear. Conjunctivae clear. PERRLA. EOMs intact. NECK: Supple without lymphadenopathy or thyromegaly. HEART: Regular rate and rhythm without murmur. LUNGS: Clear. ABDOMEN: Soft, nontender. : Not done. EXTREMITIES: No evidence of cyanosis, clubbing or edema. Moves all without focal deficit. NEUROLOGICAL: Grossly within normal limits. Cranial Nerves: II: Visual werner are intact. III, IV AND : Extraocular movements are intact. Pupils are equal, round and reactive to light. V: Facial sensation is grossly normal. VII: Facial movements and expression are normal. VIII: Auditory acuity grossly intact. IX, X: Uvula is midline. Phonation is normal. XI: Patient shrugs shoulders and turns head normally. XII: Tongue protrudes in the midline. Sensory and Motor Function: Sensory and motor sensation is grossly normal. Motor: moves all extremities well. Coordination: Gait is normal. Deep Tendon Reflexes: Intact. IMPRESSION Psychiatric admission. RECOMMENDATIONS PSYCHIATRIC: Per psychiatrist. MEDICAL: See no contraindications to participate in facility's activities. MEDICAL PROGNOSIS Good. MEDICAL CONDITION Stable. Dictated by... Abbi Hall P.A.-C. for Prabha Begum/aleksey TD: 09/19/2016 21:26 JOB #: [id number] HISTORY AND PHYSICAL Page 1 of 1 X Abbi Hall HISTORY AND PHYSICAL
--- NOTE | ~2016-09-18 | PN ---
Unit #: [id number] #: [id number] Patient: TRUDI KELLER [id number] [facility] [address] [place] [address] [id number] I MR#: [id number] NAME: TRUDI KELLER ROOM: [facility] Age: 36 Sex: F Admission Date: 09/18/2016 : 1980 Attending Physician: Sam Avilez M.D. Admitting Physician: Sam Avilez M.D. Primary Care Physician: Primary Care Physician Teresita BAPTISTE PROGRESS NOTES DATE 09/21/2016 DISCUSSION Ms. Trudi Keller is a 36-year-old female seen on 09/21/2016. The patient interviewed, chart reviewed. Obtained information from nursing staff. The patient continues to be isolative, flat affect poor hygiene, grooming. Vital signs stable 98.0, 63, 16, 128/65. The patient reports making progress. No side effects from medication. Reported still feeling anxious, nervous, sad, depressed, isolative. Complete review of systems unremarkable. MENTAL STATUS EXAMINATION The patient dressed in hospital attire. Hygiene and grooming poor. Attention span and concentration poor. Oriented to place and person. Mood affect sad, depressed withdrawn. Speech slow monotone. Thought process circumstantial. Thought content the patient denied any thoughts of harming or others but still feeling hopeless, worthless, sad, depressed, withdrawn, isolative, seclusive. Recent and remote poor. Insight and judgement poor. DIAGNOSES Schizoaffective disorder bipolar type. ASSESSMENT/PLAN Advise to continue with current medication and therapeutic protocol. We will monitor response to medication and make further adjustment of medication. Dictated by... Prabha Burk/nguyen TD: 09/24/2016 04:31 JOB #: [id number] Unit #: [id number] #: [id number] Patient: TRUDI KELLER PROGRESS NOTES Page 1 of 1 X Sam Avilez MD PROGRESS NOTE
--- NOTE | ~2016-09-18 | DS ---
Unit #: [id number] #: [id number] Patient: OLE ALVAREZ [id number] [facility] [address] [place] [address] [id number] I MR#: [id number] NAME: OLE ALVAREZ ROOM: P110 Age: 36 Sex: F Admission Date: 09/18/2016 : 1980 Discharge Date: 09/23/2016 Attending Physician: Sam Avilez M.D. Primary Care Physician: Primary Care Physician No DISCHARGE SUMMARY REASON FOR ADMISSION Psychosis. DIAGNOSTIC STUDIES LABORATORY RESULTS: Unremarkable. HOSPITAL COURSE The patient was admitted to inpatient unit on 09/18/2016 and discharged on 09/23/2016. The patient was treated on the inpatient unit with group therapy, individual therapy, medication management, and structured milieu. The patient was responsive to treatment. Subsequently, the patient was discharged with a plan to follow up in outpatient program. DISCHARGE MEDICATIONS Cymbalta 60 mg daily for depression, Vistaril 50 mg t.i.d. for anxiety, Claritin 10 mg daily for allergies, melatonin 5 mg at bedtime for sleep, Haldol 5 mg b.i.d. for psychosis, Cogentin 1 mg b.i.d. for EPS symptom, and Effexor XR 150 mg daily for mood symptom. The patient is also on Abilify injection, which she received while she was inpatient. Abilify Maintena 400 mg, last injection was on 09/22/2016. DISCHARGE DIAGNOSES Psychiatric: Schizoaffective disorder, bipolar type. Secondary diagnosis: Deferred. Medical diagnosis: Obesity. Stressors: Psychosocial stressors. DISCHARGE INSTRUCTIONS The patient is to follow up in outpatient clinic as per social sciences chair. CONDITION ON DISCHARGE The patient was pleasant and cooperative. Denied any psychotic symptom or any suicidal ideation. PROGNOSIS Guarded. DIET AND ACTIVITY As tolerated. Unit #: [id number] #: [id number] Patient: OLE ALVAREZ Dictated by... Prabha Burk/lorena TD: 09/23/2016 17:42 JOB #: [id number] DISCHARGE SUMMARY Page 1 of 1 X Chhibber,Sam Z MD X DISCHARGE SUMMARY
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
== END 2016-09-23 11:29 | disposition home or self-care (01) | DRG 885 ==
LOC: P1S 22:05
DX: F25.0 Schizoaffective disorder, bipolar type (principal); E66.9 Obesity, unspecified; F41.9 Anxiety disorder, unspecified; Z68.36 Body mass index [BMI] 36.0-36.9, adult
CPT/HCPCS: 80307; 84703; 99285